=== PATIENT | male | born 2000 | race Asian ===

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

== ENCOUNTER 2021-06-02 21:34 | Emergency (ER) | payer OTHER ==
[~2021-06-02] VITALS: Ht 172.7 cm; Wt 60.0 kg
[~2021-06-02 21:34] MED LIST: PRED20TA PO
[2021-06-02 22:40] VITALS: BP 127/64
--- NOTE | 2021-06-03 00:51 | RAD ---
EXAM: 3 views of the right ankle DATE: 06/03/2021 12:26 AM INDICATION: Reason: pain / Spl. Instructions: / History: COMPARISON: No Prior FINDINGS: No acute fracture or dislocation. Ankle mortise is congruent. Talar dome is intact. Joint spaces are preserved without significant degenerative/proliferative change. No significant soft tissue swelling. IMPRESSION: No acute fracture or dislocation. Electronically signed by: Sachin Moreau MD (06/03/2021 12:48 AM) [facility]
--- NOTE | 2021-06-03 01:23 | PHYS DOC ---
Past Medical History Past Medical History: No Pertinent History (EMILY [employer]) Past Surgical History: No Surgical History ([employer]) Smoking Status: Never Smoker Alcohol Use: None Drug Use: None (EMILY [employer]) General Adult EDM: Chief Complaint: EARACHE/EAR PAIN HPI: HPI: Patient is a 20 year old male who presents to the ED today complaining of 7 out of 10 left ear pain and right ankle pain, symptoms began yesterday. Denies any fever, coughing or congestion. Reports right ankle pain that began while playing soccer. He believes he rolled his ankle. Describes the pain as sharp and intermittent worse on range of motion. (EMILY [employer]) Review of Systems: Review of Systems: Constitutional: Denies fever or chills. [] Eyes: Denies change in visual acuity. [] HENT: Reports left ear pain. Denies nasal congestion or sore throat. [] Respiratory: Denies cough or shortness of breath. [] Cardiovascular: Denies chest pain or edema. [] GI: Denies abdominal pain, nausea, vomiting, bloody stools or diarrhea. [] : Denies dysuria. [] Musculoskeletal: Reports right ankle pain. Denies back pain Neurologic: Denies headache, focal weakness or sensory changes. [] Psychiatric: Denies depression or anxiety. [] ([employer]) Heart Score: C/O Chest Pain: N/A Risk Factors: Risk Factors: DM, Current or recent (<one month) smoker, HTN, HLP, family history of CAD, obesity. Risk Scores: Score 0 - 3: 2.5% MACE over next 6 weeks - Discharge Home Score 4 - 6: 20.3% MACE over next 6 weeks - Admit for Clinical Observation Score 7 - 10: 72.7% MACE over next 6 weeks - Early Invasive Strategies ([employer]) Allergies: Allergies: Allergies Coded Allergies Type Severity Reaction Last Updated Verified No Known Drug Allergies 10/29/17 No ([employer]) Physical Exam: PE: Constitutional: Well developed, well nourished, no acute distress, non-toxic appearance. [] HENT: Normocephalic, atraumatic, bilateral external ears normal, oropharynx moist, no oral exudates, nose normal. Left ear canal with moderate amount of cerumen, there is slight space in the TM can be visualized and appears normal. Right ear canal with small amount of ce rumen. Eyes: PERRLA, EOMI, conjunctiva normal, no discharge. [] Neck: Normal range of motion, no tenderness, supple, no stridor. [] Cardiovascular:Heart rate regular rhythm, no murmur [] Lungs & Thorax: Bilateral breath sounds clear to auscultation [] Abdomen: Bowel sounds normal, soft, no tenderness, no masses, no pulsatile masses. [] Skin: Warm, dry, no erythema, no rash. [] Back: No tenderness, no CVA tenderness. [] Extremities: Right ankle with no obvious deformity, small soft tissue swelling noted on the right lateral ankle, tenderness on palpation of the right lateral ankle. Full range of motion to the right ankle and foot. +2 right pedal pulse. Cap refill less than 2 seconds to right toes. Neurologic: Alert and oriented X 3, normal motor function, normal sensory function, no focal deficits noted. [] Psychologic: Affect normal, judgement normal, mood normal. [] ([employer]) Current Patient Data: Vital Signs: Vital Signs Date Time Temp Pulse Resp B/P (MAP) Pulse Ox O2 Delivery O2 Flow Rate FiO2 06/02/21 22:40 98.3 68 127/64 (85) Room Air 18.0 98.3 ([employer]) EKG: EKG: [] ([employer]) Radiology/Procedures: Radiology/Procedures: []PROCEDURE: ANKLE RIGHT 3V EXAM: 3 views of the right ankle DATE: 06/03/2021 12:26 AM INDICATION: Reason: pain / Spl. Instructions: / History: COMPARISON: No Prior FINDINGS: No acute fracture or dislocation. Ankle mortise is congruent. Talar dome is intact. Joint spaces are preserved without significant degenerative/proliferative change. No significant soft tissue swelling. IMPRESSION: No acute fracture or dislocation. Electronically signed by: Sachin De Los Santos MD (06/03/2021 12:48 AM) [facility] DICTATED and SIGNED BY: SACHIN DE LOS SANTOS MD DATE: 06/03/21 [id number] (EMILY WONG APRN) Course & Med Decision Making: Course & Med Decision Making Pertinent Labs and Imaging studies reviewed. (See chart for details) This is a 20-year-old male patient presented to the ED today with left ear pain, patient was noted to have cerumen impaction. Debrox recommended. Also complaining of right ankle pain that began yesterday. Right ankle x-rays interpreted by radiologist are negative for any acute findings. Jimmie bandage recommended to the right ankle. Ice elevation, OTC pain relievers. Follow-up with Ortho and ENT. (EMILY WONG APRN) Course & Med Decision Making I was the Attending physician on the above date of service of this patient. This patient was evaluated, examined, treated, and dispositioned from the emergency department by the mid-level practitioner. Although I was working at the time , no assistance was requested. Electronically signed, Sea Flowers DO (SEA FLOWERS DO) Dragon Disclaimer: Dragon Disclaimer: This electronic medical record was generated, in whole or in part, using a voice recognition dictation system. (EMILY WONG APRN) Departure Departure Impression: Primary Impression: Impacted cerumen of both ears Additional Impression: Right ankle sprain Qualified Codes: S93.401A - Sprain of unspecified ligament of right ankle, initial encounter Disposition: HOME / SELF CARE / HOMELESS Condition: STABLE Referrals: NO PCP (PCP) JUSTINE MAYO DO Follow-up in 1 to 2 weeks DAWSON CLEMENS MD Follow-up in 1 to 2 weeks Patient Instructions: Ankle Sprain, Cerumen Impaction-SportsMed Additional Instructions: You were evaluated in the emergency room and noted to have earwax. Please buy [id number] DEBROX and use it for removing earwax. Your right ankle x-rays are negative for any acute findings. Wrap the ankle with an Jimmie bandage. Try to ice and elevate the ankle. You can take [id number] pain relievers. Follow- up with the provided orthopedic doctor in 1 to 2 weeks EMILY WONG APRN Jun 03, 2021 01:23 SEA FLOWERS DO Jun 06, 2021 17:38
== END 2021-06-03 01:29 | disposition home or self-care (01) ==
LOC: ER 21:34
DX: S93.401A Sprain of unspecified ligament of right ankle, initial encounter (principal); H61.23 Impacted cerumen, bilateral; X50.9XXA Other and unspecified overexertion or strenuous movements or postures, initial encounter; Y93.66 Activity, soccer; Y92.89 Other specified places as the place of occurrence of the external cause; Y99.8 Other external cause status
CPT/HCPCS: 73610; 99283